=== PATIENT | male | born 1955 | race Caucasian/White ===

== ENCOUNTER → 2024-10-19 13:20 | Outpatient (REF) | payer MEDICARE, OTHER, SELFPAY ==
[2024-10-19 14:13] LABS: Hematocrit 43.1 % (39.0-52.0); Hemoglobin 14.4 g/dL (13.0-18.0); Mean Corp Hgb Conc. 33.4 g/dL (33.0-37.0); Mean Corpuscular Hgb 30.6 pg (27.0-31.0); Mean Corpuscular Volume 91.5 fL (80.0-94.0); Mean Platelet Volume 11.1 fL (7.4-10.4); Platelet Count 175 10^3/uL (130-400); Red Blood Cell Count 4.71 10^6/uL (4.70-6.10); Red Cell Dist. Width 13.9 % (11.5-14.5); White Blood Cell Count 9.9 10^3/uL (4.8-10.8)
== END ==
LOC: SDSPAT 13:20
PROVIDERS: ATTENDING PHYSICIAN Otolaryngology Facial Plastic Surgery; FAMILY PHYSICIAN Family Medicine
DX: Z01.818 Encounter for other preprocedural examination (principal)
CPT/HCPCS: 36415; 85027; 93005

== ENCOUNTER 2024-11-13 06:12 | Day surgery (SDC) | payer MEDICARE, OTHER, SELFPAY ==
[2024-10-19 14:26] VITALS: BMI 33.2
--- NOTE | 2024-10-20 14:41 | PTCARENOTE ---
Abnormal EKG on 10/20/24. A previous EKG was done 09/2021 at another facility. The report is on the chart, but a copy of the tracing is not available. Dr. Munguia aware. No intervention needed.
[2024-11-13] VITALS (9 sets, daily range): BP systolic 119–148; BP diastolic 49–78; BMI 33.2
[2024-11-13] MEDS: NORMOSOL-R/PLASMALYTE-A 1000 IV (08:22)
[2024-11-13] MEDS: TYLENOL 1000 MG PO (09:15)
== END 2024-11-13 13:00 | disposition home or self-care (01) ==
LOC: SDS 06:12
PROVIDERS: ATTENDING PHYSICIAN Otolaryngology Facial Plastic Surgery; FAMILY PHYSICIAN Family Medicine
DX: J32.9 Chronic sinusitis, unspecified (principal)
CPT/HCPCS: 31276; 31254; 31288; 31267; 88304; 88311